=== PATIENT | female | born 1935 | race Caucasian/White ===

== ENCOUNTER 2020-06-20 17:27 | Outpatient (REF) | payer MEDICARE, SELFPAY | END 2020-06-20 17:28 | disposition home or self-care (01) | LOC: HO.LNP 17:27 | PROVIDERS: Visit Provider Nurse Practitioner Family | DX: R30.0 Dysuria (principal) | CPT/HCPCS: 87086; 87088; 87186 ==

== ENCOUNTER 2020-07-04 12:55 | Outpatient (REF) | payer MEDICARE, SELFPAY | END 2020-07-04 12:56 | disposition home or self-care (01) | LOC: HO.LNP 12:55 | PROVIDERS: Visit Provider Hospitalist | DX: N39.0 Urinary tract infection, site not specified (principal) | CPT/HCPCS: 87086 ==

== ENCOUNTER 2020-07-24 09:27 | Outpatient (REF) | payer MEDICARE, SELFPAY ==
[2020-07-24 12:34] LABS: TSH reflex Free T4 4.65 mIU/mL (0.32-4.0)
[2020-07-24 12:45] LABS: Alanine Aminotransferase 141 U/L (0-31); Albumin Level 4.3 g/dL (3.5-5.0); Alkaline Phosphatase 80 U/L (39-117); Anion Gap 17 (12-20); Aspartate Amino Transferase 126 U/L (5-31); Bilirubin Total 0.9 mg/dL (0.0-1.0); Blood Urea Nitrogen 17 mg/dL (9-16); Calcium 9.6 mg/dL (8.4-10.2); Carbon Dioxide 20 mmol/L (22-29); Chloride 108 mmol/L (96-108); Estimated Glomerular Filt Rate 46; Glucose Fasting 113 mg/dL (60-99); Potassium 3.7 mmol/l (3.3-5.1); Sodium 141 mmol/L (135-145); Total Protein 7.1 g/dL (6.5-8.0)
[2020-07-24 13:49] LABS: Free T4 (Free Thyroxine) 1.26 ng/dL (0.71-1.85)
== END 2020-07-24 09:28 | disposition home or self-care (01) ==
LOC: HO.HMGCLDS 09:27
PROVIDERS: PCP Internal Medicine; Visit Provider Nurse Practitioner Family
DX: E03.9 Hypothyroidism, unspecified (principal); R74.8 Abnormal levels of other serum enzymes
CPT/HCPCS: 80053; 84439; 84443

== ENCOUNTER → 2020-08-01 13:57 | Outpatient (BNVA) | payer MEDICARE, SELFPAY | PROVIDERS: PCP Internal Medicine; Visit Provider Urology | DX: R39.15 Urgency of urination (principal); R35.0 Frequency of micturition | CPT/HCPCS: 81002; Q3014 ==

== ENCOUNTER 2020-08-19 07:48 | Outpatient (REF) | payer MEDICARE, SELFPAY ==
--- NOTE | 2020-08-19 07:51 | US_ITS ---
EXAMINATION: US ABDOMEN COMPLETE CLINICAL INFORMATION: Abnormal levels of other serum enzymes. COMPARISON: Ultrasound abdomen 07/19/2018 TECHNIQUE: Real-time imaging of the abdominal viscera. FINDINGS: PANCREAS: Normal. ABDOMINAL AORTA: The abdominal aorta is of normal caliber. INFERIOR VENA CAVA: Visualized portions are normal. LIVER: The liver is normal in size. The liver contour is normal. The liver is diffusely increased in echogenicity. No focal hepatic lesion. There is no intrahepatic biliary duct dilatation seen. GALLBLADDER: There are multiple echogenic shadowing gallstones with gallbladder wall thickening of 0.2 cm. COMMON BILE DUCT: Normal in caliber measuring 0.3 cm in diameter. RIGHT KIDNEY: There is a complex cystic lesion in the upper pole measuring 11.0 x 10.0 x 12.3 cm. No hydronephrosis or renal calculi. The kidney measures 13.7 cm in maximum dimension. LEFT KIDNEY: There is an echogenic stone versus calcification in midpole measuring 0.4 x 0.24 x 0.35 cm. Surrounding this calcification is an anechoic cyst measuring 1.2 x 1.5 x 2.0 cm. No hydronephrosis. The kidney measures 11.6 cm in maximum dimension. SPLEEN: The spleen measures 15.4 cm in maximum dimension. FREE FLUID: None. US/US abdomen complete IMPRESSION: Complex cyst midpole left kidney with an echogenic stone or calcification adjacent to it. Large complex cyst right kidney. Cholelithiasis without wall thickening. Hepatic steatosis. No focal lesions seen.
== END 2020-08-19 07:49 | disposition home or self-care (01) ==
LOC: HO.US 07:48
PROVIDERS: Visit Provider Nurse Practitioner Family
DX: R74.8 Abnormal levels of other serum enzymes (principal)
CPT/HCPCS: 76700

== ENCOUNTER 2020-09-03 14:38 | Outpatient (REF) | payer MEDICARE, SELFPAY ==
[2020-09-04 14:23] LABS: Urine Cytology See Pathology rpt
== END 2020-09-03 14:39 | disposition home or self-care (01) ==
LOC: HO.LNP 14:38
PROVIDERS: PCP Nurse Practitioner Family; Visit Provider Urology
DX: Z13.89 Encounter for screening for other disorder (principal)

== ENCOUNTER 2020-09-04 | Outpatient (REF) | payer MEDICARE, SELFPAY | END 2020-09-04 00:01 | disposition home or self-care (01) | LOC: HO.LNP | PROVIDERS: Visit Provider Urology | DX: R39.15 Urgency of urination (principal) | CPT/HCPCS: 88112 ==

== ENCOUNTER 2020-09-23 12:14 | Outpatient (REF) | payer MEDICARE, SELFPAY ==
--- NOTE | 2020-09-23 12:19 | US_ITS ---
EXAMINATION: US PELVIS LIMITED (BLADDER) CLINICAL INFORMATION: Poor urinary stream. COMPARISON: None TECHNIQUE: Real-time imaging of the bladder. FINDINGS: BLADDER: Well distended and normal. Bilateral ureteral jets are demonstrated. Prevoid bladder volume is 150 mL. Postvoid bladder volume is 22 mL. US/US bladder IMPRESSION: Small postvoid residual bladder volume of 22 mL. Normal bilateral ureteral jets. No bladder wall thickening seen.
== END 2020-09-23 12:15 | disposition home or self-care (01) ==
LOC: HO.US 12:14
PROVIDERS: PCP Nurse Practitioner Family; Visit Provider Urology
DX: R39.12 Poor urinary stream (principal); R39.15 Urgency of urination
CPT/HCPCS: 76857

== ENCOUNTER → 2020-10-03 14:46 | Outpatient (BNVA) | payer MEDICARE, SELFPAY | PROVIDERS: PCP Nurse Practitioner Family; Visit Provider Urology | DX: N32.81 Overactive bladder (principal) | CPT/HCPCS: 99212 ==

== ENCOUNTER 2022-11-29 08:16 | Day surgery (SDC) | payer MEDICARE, SELFPAY ==
[2022-11-24 11:34] VITALS: BMI 29.3
[2022-11-24 13:31] VITALS: BMI 29.0
[2022-11-25 14:34] VITALS: BMI 27.8
--- NOTE | 2022-11-26 09:23 | MHC.SHP ---
Pre-Procedural Eval Section A Date of Service: 11/26/22 The patient is an INPATIENT: No Changes since office visit: No Cold of Flu in the past 2 weeks, No New Medical Problems, No Changes in Medication and No Patient answered all questions The History & Physical has been completed within 30 days and I have reviewed it.: Yes Section B Chief Complaint: Age-related nuclear cataract, right eye Allergies: Allergies Allergy/AdvReac Type Severity Reaction Status Date / Time No Known Allergies Allergy Verified 11/25/22 15:21 [No Known Allergies*] Plan Diagnosis/Plan: Unchanged I have reviewed the history and physical and performed a pertinent physical examination on my patient. No changes have occurred unless specified. Time Spent With Patient Time: Total time managing care of this patient today ____ minutes.
--- NOTE | 2022-11-26 10:30 | HO.ANESPROP2 ---
Documented by User: Suellen Ly NP 11/26/22 10:30 HPI - Anesthesia Eval Consult details Narrative: 87yo F for Right Cataract Extraction IOL Insertion PCP cleared No previous cataract on record [facility] Active Problems Active Problems: All Active Problems (Updated 11/25/22 @ 15:21 by FAIZA Reid) Pre-op evaluation (Acute) Dysuria (Acute) Pelvic pressure in female (Acute) Hypothyroid (Acute) Urinary urgency (Acute) Urinary frequency (Acute) Overactive bladder (Acute) HTN (hypertension) (Acute) Complex renal cyst (Acute) Elevated liver enzymes (Acute) Past Medical History Medical History Arthritis Complex renal cyst Elevated liver enzymes HTN (hypertension) Hypothyroid Overactive bladder Family History Family History Father No problems noted. Mother HTN (hypertension) Diabetes mellitus Paternal Grandfather No problems noted. Maternal Grandfather No problems noted. Maternal Grandmother No problems noted. Paternal Grandmother No problems noted. Sister No problems noted. Son No problems noted. Daughter No problems noted. Surgical History Surgical History BCC (basal cell carcinoma) History of left hip replacement History of right hip replacement Hx of tonsillectomy Social History Social History Housing: House Are you a primary care team coordinator scheduler to a significant other at home: No Do you presently have visiting nurse or other home services: No Alcohol intake: never Patient Tobacco Use Status: Former Tobacco user Quit Date: age 37 Tobacco use type: Cigarette Years Smoked: 15 e-Cigarette/Vaping Use: Never Used Second Hand Smoke Exposure: No Use of substances other than those prescribed or required for medical reasons: No Have you been hit, kicked, punched, or otherwise hurt by someone within the past year? If so, by whom?: No Are you DNR?: No Advance Directives: No Advance Directives Information Provided: Yes (brochure mailed) Advance Directives on File: No Recently lost weight without trying: No Eating poorly because of decreased appetite: No Nutrition Risks: Surgical patient >75years Poor oral hygiene: No (upper full & lower partial dentures) Current occupational status: retired Cognitive needs: No Hearing needs: No Vision needs: No Meds Allergies Allergy/AdvReac Type Severity Reaction Status Date / Time No Known Allergies Allergy Verified 11/25/22 15:21 [No Known Allergies*] Exam Exam Date and Time: November 26, 2022 1030 Height,Weight and Vital Signs: Height 5 ft 6 in Weight 78.245 kg Assessment and Plan Assessment Anesthesia Assessment: Chart Reviewed Documented by User: Guy Ashton MD 11/29/22 12:36 HPI - Anesthesia Eval Consult details Narrative: 87yo F for Right Cataract Extraction IOL Insertion optimized per PCP No previous cataract on record [facility] Past Medical History Medical History Arthritis Complex renal cyst Elevated liver enzymes HTN (hypertension) Hypothyroid Overactive bladder Family History Family History Father No problems noted. Mother HTN (hypertension) Diabetes mellitus Paternal Grandfather No problems noted. Maternal Grandfather No problems noted. Maternal Grandmother No problems noted. Paternal Grandmother No problems noted. Sister No problems noted. Son No problems noted. Daughter No problems noted. Family history of problems with anesthesia: No Surgical History Surgical History BCC (basal cell carcinoma) History of left hip replacement History of right hip replacement Hx of tonsillectomy History of Problems with Anesthesia: No Social History Social History Housing: House Are you a primary care team coordinator scheduler to a significant other at home: No Do you presently have visiting nurse or other home services: No Alcohol intake: never Patient Tobacco Use Status: Former Tobacco user Quit Date: age 37 Tobacco use type: Cigarette Years Smoked: 15 e-Cigarette/Vaping Use: Never Used Second Hand Smoke Exposure: No Use of substances other than those prescribed or required for medical reasons: No Have you been hit, kicked, punched, or otherwise hurt by someone within the past year? If so, by whom?: No Are you DNR?: No Advance Directives: No Advance Directives Information Provided: Yes (brochure mailed) Advance Directives on File: No Recently lost weight without trying: No Eating poorly because of decreased appetite: No Nutrition Risks: Surgical patient >75years Poor oral hygiene: No (upper full & lower partial dentures) Current occupational status: retired Cognitive needs: No Hearing needs: No Vision needs: No Meds Allergies Allergy/AdvReac Type Severity Reaction Status Date / Time No Known Allergies Allergy Verified 11/25/22 15:21 [No Known Allergies*] Exam Airway Mallampati Class: IV Denture: Upper Partial: Lower Loose/Missing/Broken Teeth: Yes Heart: S1,S2 Lungs: b/l breath sounds Assessment and Plan Assessment Anesthesia Assessment: Anesthesia Plan Discussed Final Anesthetic Review Family History of Problems with Anesthesia: No History of Problems with Anesthesia: No NPO: Yes ASA Class: III Final Preanesthetic Review: Meds/Allgs Chart Reviewed, Consent Obtained/Reviewed and Anes Risks/Benef Reviewed Patient Risk: Intermediate Procedure Risk: Intermediate Anesthetic Plan Anesthetic Plan: MAC: Disposition: Standard PACU
[2022-11-29 09:44] VITALS: BP 135/62; PULSE 63; RESP 16; TEMP 36.4; O2SAT 97
[2022-11-29] MEDS: Tetracaine HCl/PF 0.5% Oph Sol 4 ML DROPS 1 DROP EYE-RIGHT (09:50)
[2022-11-29] MEDS: Cyclopentolate 1 % Ophth Sol 2 ML DRPBTL 1 DROP EYE-RIGHT ×3 (09:52→10:03)
[2022-11-29] MEDS: Tropicamide 1 % Ophth Sol 3 ML BTL 1 DROP EYE-RIGHT ×3 (09:53→10:04)
[2022-11-29] MEDS: Phenylephrine HCL 2.5% Oph SoL 2 ML BOTTLE 1 DROP EYE-RIGHT ×3 (09:54→10:06)
[2022-11-29] MEDS: Ketorolac Tromethamine 0.5% Op 5 ML DROPS 1 DROP EYE-RIGHT ×3 (09:54→10:05)
[2022-11-29] MEDS: Lactated Ringers 500 ML 50 ML IV (09:57)
--- NOTE | 2022-11-29 10:58 | HO.PNOPHT ---
Ophthalmology Procedure Procedure Date of Service: 11/29/22 Ophthalmology Viscoelastic: Ileana Kimblet Dual Pack Pro Ophthalmology Lenses: TECRON [id number] (21) Procedure Notes: PREOPERATIVE DIAGNOSIS: Decreased visual acuity right eye secondary to cataract POSTOPERATIVE DIAGNOSIS: Same PROCEDURE: Right cataract extraction with intraocular lens insertion SURGEON: Malik Barros M.D. ANESTHESIA: Topical/MAC ESTIMATED BLOOD LOSS: None COMPLICATIONS: None After obtaining informed consent, the patient was brought to the operating room suite and placed in the supine position. After adequate sedation per anesthesia, topical drops of Tetracaine were given to the right eye. The eye was then prepped and draped in the usual sterile fashion. The operating room microscope was then positioned over the operative eye and a lid speculum placed. A paracentesis was created. Viscoelastic was then instilled into the anterior chamber. A three plane incision was then created temporally, utilizing a 2.85 mm keratome. Capsulotomy forceps were then utilized to create a circular tear capsulotomy. Hydrodissection and hydrodelineation were carried out until adequate mobilization of the nucleus occurred. Phacoemulsification was then utilized to remove the dense central nucleus followed by removal of the cortical material utilizing the automated aspiration irrigation unit. Viscoelastic was instilled into the posterior capsular bag followed by placement of a posterior chamber intraocular lens without difficulty. The residual Viscoelastic was then removed utilizing the automated IA machine. The wound was checked and found to be watertight. The patient tolerated the procedure well and the lid speculum was removed. Intracameral injection of Vigamox 0.1 mL followed by a subtenon injection of Kenalog-40 0.2 mL were administered. The patient will be seen in the a.m.
[2022-11-29 11:33] VITALS: BP 150/73; PULSE 62; RESP 16; TEMP 36.3; O2SAT 98
== END 2022-11-29 11:41 | disposition home or self-care (01) ==
PROVIDERS: PCP Nurse Practitioner Family; Visit Provider Ophthalmology
PROC: (CPT 66985; principal; 2022-11-29 11:00)
DX: H25.11 Age-related nuclear cataract, right eye (principal); H52.4 Presbyopia; H35.00 Unspecified background retinopathy; H35.3121 Nonexudative age-related macular degeneration, left eye, early dry stage; H18.413 Arcus senilis, bilateral; H91.90 Unspecified hearing loss, unspecified ear; I10 Essential (primary) hypertension; E03.9 Hypothyroidism, unspecified; Z79.899 Other long term (current) drug therapy; Z87.891 Personal history of nicotine dependence
CPT/HCPCS: 66984; J3010; J3301; V2632

== ENCOUNTER 2022-12-13 08:45 | Day surgery (SDC) | payer MEDICARE, SELFPAY ==
[2022-11-24 11:35] VITALS: BMI 29.3
[2022-11-24 13:34] VITALS: BMI 29.0
[2022-11-25 14:35] VITALS: BMI 27.8
--- NOTE | 2022-12-09 14:54 | MHC.SHP ---
Pre-Procedural Eval Section A Date of Service: 12/09/22 The patient is an INPATIENT: No Changes since office visit: No Cold of Flu in the past 2 weeks, No New Medical Problems, No Changes in Medication and No Patient answered all questions The History & Physical has been completed within 30 days and I have reviewed it.: Yes Section B Chief Complaint: Age-related nuclear cataract, left eye Allergies: Allergies Allergy/AdvReac Type Severity Reaction Status Date / Time No Known Allergies Allergy Verified 11/25/22 15:21 [No Known Allergies*] Plan Diagnosis/Plan: Unchanged I have reviewed the history and physical and performed a pertinent physical examination on my patient. No changes have occurred unless specified. Time Spent With Patient Time: Total time managing care of this patient today ____ minutes.
--- NOTE | 2022-12-13 09:19 | P.CONAN_ITS ---
[facility] Active Problems Active Problems: All Active Problems (Updated 11/25/22 @ 15:21 by FAIZA Reid) Pre-op evaluation (Acute) Dysuria (Acute) Pelvic pressure in female (Acute) Hypothyroid (Acute) Urinary urgency (Acute) Urinary frequency (Acute) Overactive bladder (Acute) HTN (hypertension) (Acute) Complex renal cyst (Acute) Elevated liver enzymes (Acute) Past Medical History Medical History Arthritis Complex renal cyst Elevated liver enzymes HTN (hypertension) Hypothyroid Overactive bladder Family History Family History Father No problems noted. Mother HTN (hypertension) Diabetes mellitus Paternal Grandfather No problems noted. Maternal Grandfather No problems noted. Maternal Grandmother No problems noted. Paternal Grandmother No problems noted. Sister No problems noted. Son No problems noted. Daughter No problems noted. Family history of problems with anesthesia: No Surgical History Surgical History BCC (basal cell carcinoma) History of left hip replacement History of right hip replacement Hx of tonsillectomy History of Problems with Anesthesia: No Social History Social History Housing: House Are you a primary youth care professional to a significant other at home: No Do you presently have visiting nurse or other home services: No Alcohol intake: never Patient Tobacco Use Status: Former Tobacco user Quit Date: age 37 Tobacco use type: Cigarette Years Smoked: 15 e-Cigarette/Vaping Use: Never Used Second Hand Smoke Exposure: No Use of substances other than those prescribed or required for medical reasons: No Have you been hit, kicked, punched, or otherwise hurt by someone within the past year? If so, by whom?: No Are you DNR?: No Advance Directives: No Advance Directives Information Provided: Yes (brochure mailed) Recently lost weight without trying: No Eating poorly because of decreased appetite: No Nutrition Risks: Surgical patient >75years Poor oral hygiene: No (upper full & lower partial dentures) Current occupational status: retired Cognitive needs: No Hearing needs: No Vision needs: No Meds Allergies Allergy/AdvReac Type Severity Reaction Status Date / Time No Known Allergies Allergy Verified 11/25/22 15:21 [No Known Allergies*] Exam Exam Date and Time: December 13, 2022 0919 Height,Weight and Vital Signs: Height 5 ft 6 in Weight 78.245 kg Airway Mallampati Class: II TM Dist: >3cm Neck ROM: Full Denture: Upper Partial: Lower Heart: rrr Lungs: cta Assessment and Plan Assessment Anesthesia Assessment: Anesthesia Plan Discussed and Chart Reviewed Final Anesthetic Review Family History of Problems with Anesthesia: No History of Problems with Anesthesia: No NPO: Yes ASA Class: III Final Preanesthetic Review: No Changes in Pt Med Stat, Meds/Allgs Chart Reviewed and Consent Obtained/Reviewed Patient Risk: Intermediate Procedure Risk: Intermediate Anesthetic Plan Anesthetic Plan: MAC: Disposition: Standard PACU
[2022-12-13 09:52] VITALS: BP 142/61; PULSE 63; RESP 16; TEMP 36.1; O2SAT 98
[2022-12-13] MEDS: Cyclopentolate 1 % Ophth Sol 2 ML DRPBTL 1 DROP EYE-LEFT ×3 (09:56→10:06)
[2022-12-13] MEDS: Tetracaine HCl/PF 0.5% Oph Sol 4 ML DROPS 1 DROP EYE-LEFT (09:56)
[2022-12-13] MEDS: Tropicamide 1 % Ophth Sol 3 ML BTL 1 DROP EYE-LEFT ×3 (09:57→10:07)
[2022-12-13] MEDS: Ketorolac Tromethamine 0.5% Op 5 ML DROPS 1 DROP EYE-LEFT ×3 (10:00→10:07)
[2022-12-13] MEDS: Phenylephrine HCL 2.5% Oph SoL 2 ML BOTTLE 1 DROP EYE-LEFT ×3 (10:02→10:08)
[2022-12-13] MEDS: Lactated Ringers 500 ML 50 ML IV (10:14)
--- NOTE | 2022-12-13 10:36 | HO.PNOPHT ---
Ophthalmology Procedure Procedure Date of Service: 12/13/22 Ophthalmology Viscoelastic: Healjesse Duet Dual Pack Pro Ophthalmology Lenses: TECNIS [id number] (21.5) Procedure Notes: PREOPERATIVE DIAGNOSIS: Decreased visual acuity left eye secondary to cataract POSTOPERATIVE DIAGNOSIS: Same PROCEDURE: Left cataract extraction with intraocular lens insertion SURGEON: Malik Barros M.D. ANESTHESIA: Topical/MAC ESTIMATED BLOOD LOSS: None COMPLICATIONS: None After obtaining informed consent, the patient was brought to the operation room suite and placed in the supine position. After adequate sedation per anesthesia, topical drops of Tetracaine were given to the left eye. The eye was then prepped and draped in the usual sterile fashion. The operating room microscope was then positioned over the operative eye and a lid speculum placed. A paracentesis was created. Viscoelastic was then instilled into the anterior chamber. A three plane incision was then created temporally, utilizing a 2.85 mm keratome. Capsulotomy forceps were then utilized to create a circular tear capsulotomy. Hydrodissection and hydrodelineation were carried out until adequate mobilization of the nucleus occurred. Phacoemulsification was then utilized to remove the dense central nucleus followed by removal of the cortical material utilizing the automated aspiration irrigation unit. Viscoat elastic was instilled into the posterior capsular bag followed by placement of a posterior chamber intraocular lens without difficulty. The residual Viscoat elastic was then removed utilizing the automated IA machine. The wound was check and found to be watertight. The patient tolerated the procedure well and the lid speculum was removed. Intracameral injection of Vigamox 0.1 mL followed by a subtenon injection of Kenalog-40 0.2 mL were administered. The patient will be seen in the a.m.
[2022-12-13 10:56] VITALS: BP 139/59; PULSE 61; RESP 12; TEMP 37.1; O2SAT 100
== END 2022-12-13 11:14 | disposition home or self-care (01) ==
PROVIDERS: PCP Nurse Practitioner Family; Visit Provider Ophthalmology
PROC: (CPT 66985; principal; 2022-12-13 10:50)
DX: H25.12 Age-related nuclear cataract, left eye (principal); H52.4 Presbyopia; H35.00 Unspecified background retinopathy; H35.3121 Nonexudative age-related macular degeneration, left eye, early dry stage; H18.413 Arcus senilis, bilateral; I10 Essential (primary) hypertension; E03.9 Hypothyroidism, unspecified; H91.90 Unspecified hearing loss, unspecified ear; Z79.899 Other long term (current) drug therapy
CPT/HCPCS: 66984; J2250; J3010; J3301; V2632

== ENCOUNTER 2023-07-13 07:46 | Outpatient (REF) | payer MEDICARE, SELFPAY ==
[2023-07-13 08:11] LABS: MANUAL DIFF FLAG NO
[2023-07-13 09:32] LABS: Basophils Percent Auto 0.7 % (0-2); Eosinophils Absolute Auto 0.1 X10*3/uL (0.0-0.4); Eosinophils Percent Auto 1.5 % (0-4); Hematocrit 36.3 % (37.0-47.0); Hemoglobin 11.1 g/dl (12.0-16.0); Imm Gran Abs Auto 0.03 X10*3/uL (0.00-0.03); Imm Gran Pct Auto 0.5 % (0.0-0.4); Lymphocytes Absolute Auto 1.4 X10*3/uL (1.2-4.9); Lymphocytes Percent Auto 26.2 % (20-40); Mean Corpuscular HGB Conc 30.6 g/dl (31.0-35.0); Mean Corpuscular Hemoglobin 24.9 pg (27.0-33.0); Mean Corpuscular Volume 81.4 fL (80.0-98.0); Mean Platelet Volume 10.2 fL (9.4-12.3); Monocytes Absolute Auto 0.5 X10*3/uL (0.1-1.2); Monocytes Percent Auto 8.6 % (2-11); Neutrophils Absolute Auto 3.4 x10*3/uL (2.0-8.3); Neutrophils Percent Auto 62.5 % (45-73); Platelet Count 176 X10*3/uL (160-400); Red Blood Count 4.46 X10*6/uL (4.20-5.50); Red Cell Distribution Width 15.6 % (11.0-16.0); White Blood Count 5.5 X10*3/uL (4.8-10.8)
[2023-07-13 10:25] LABS: Alanine Aminotransferase 20 U/L (0-31); Albumin Level 4.2 g/dL (3.5-5.0); Alkaline Phosphatase 67 U/L (39-117); Anion Gap 15 (12-20); Aspartate Amino Transferase 23 U/L (5-31); Bilirubin Total 0.8 mg/dL (0.0-1.0); Blood Urea Nitrogen 29 mg/dL (9-16); Calcium 10.3 mg/dL (8.4-10.2); Carbon Dioxide 22 mmol/L (22-29); Chloride 109 mmol/L (96-108); Cholesterol 139 mg/dL (<200); Estimated Glomerular Filt Rate 40; Glucose Fasting 116 mg/dL (60-99); HDL Cholesterol 32 mg/dL (>40); LDL Cholesterol Calculated 76 mg/dL (<100); Potassium 3.7 mmol/L (3.3-5.1); Sodium 142 mmol/L (135-145); Total Protein 7.5 g/dL (6.5-8.0); Triglycerides 159 mg/dL (<150)
== END 2023-07-13 07:47 | disposition home or self-care (01) ==
LOC: HO.LAB 07:46
PROVIDERS: PCP Nurse Practitioner Family; Visit Provider Nurse Practitioner Family
DX: I10 Essential (primary) hypertension (principal)
CPT/HCPCS: 36415; 80053; 80061; 84443; 85025

== ENCOUNTER 2023-12-19 14:56 | Outpatient (AMB) | payer MEDICARE, SELFPAY ==
--- NOTE | 2023-12-19 14:58 | MHC.PC.OV ---
Vital Signs 12/19/23 15:00 Height 5 ft 6 in Weight 169 lb BMI 27.3 BP 116/60 Blood Pressure Location Rt brachial Position Sitting Pulse 68 Pulse Source Pulse Oximeter Pulse Oximetry (%) 97 Oxygen Delivery Method Room Air Intake Visit Reasons: PE HTN Intake Note: Patient here for physical exam, no new issues or concerns. Allergies No Known Allergies [No Known Allergies*] Allergy (Verified 12/19/23 17:37) Medication List - Last Reconciled 12/19/23 by FAIZA Reid amlodipine 10 mg PO DAILY levothyroxine 88 mcg PO DAILY lisinopril-hydrochlorothiazide 20-12.5 mg 1 tab PO DAILY 90 days metoprolol tartrate 50 mg PO BID Tobacco use date assessed: 12/19/23 Fall risk assessment: No Falls in past year Last assessed Fall Risk: 12/19/23 Dental Screening Dental Screen Date: 12/19/23 Did you have a dental visit in the last 12 months?: No Did you have a dental problem in the last 6 months where you did not have access to dental care?: No Was dental information given to patient?: No HPI PE HTN HPI Details Pt is here for a PE. Will order labs. Refuses mammo and other screenings. HTN: Blood pressure is stable, managed with amlodipine 10mg, lisinopril-hydrochlorothiazide 20-12.5mg, and metoprolol 50mg bid. Denies chest pain, shortness of breath, headache, dizziness, and blurred vision. [facility] Medical History Overactive bladder Arthritis Hypothyroid HTN (hypertension) Complex renal cyst Elevated liver enzymes Surgical History (Updated 04/21/23 @ 18:00 by FAIZA Reid) Hx of tonsillectomy BCC (basal cell carcinoma) History of right hip replacement History of left hip replacement Family History Father No problems noted. Mother HTN (hypertension) Diabetes mellitus Paternal Grandfather No problems noted. Maternal Grandfather No problems noted. Maternal Grandmother No problems noted. Paternal Grandmother No problems noted. Sister No problems noted. Son No problems noted. Daughter No problems noted. Social History Housing: House Are you a primary personal care service provider to a significant other at home: No Do you presently have visiting nurse or other home services: No Alcohol intake: never Patient Tobacco Use Status: Former Tobacco user Quit Date: age 37 Tobacco use type: Cigarette Years Smoked: 15 e-Cigarette/Vaping Use: Never Used Second Hand Smoke Exposure: No Current occupational status: retired Cognitive needs: No Hearing needs: No Vision needs: No Questionnaire Thrive Questionnaire Date Thrive assessed: 11/25/22 AUDIT C Alcohol Use Questionnaire (AUDIT-C) 1. How often do you have a drink containing alcohol?: Never 3. How often do you have six or more drinks on one occasion?: Never Total Score: 0 Score Reviewed/Action Taken: No JOHN-7 AMB Questionnaire JOHN-7 Date JOHN - 7 assessed: 11/25/22 Source: Developed by Drs. Sylvain Rowe, Sonia Strodu, Luther Reyes and colleagues, with an educational crissy from [employer]. Review of Systems Const Denies chills and Denies fever(s) Eyes Denies blurry vision ENT Denies vertigo, Denies dizziness and Denies sore throat Card Denies chest pain at rest, Denies chest pain with activity, Denies diaphoresis, Denies dyspnea and Denies dyspnea on exertion Resp Denies cough, Denies dyspnea, Denies dyspnea on exertion and Denies wheezing GI Denies abdominal pain, Denies melena, Denies hematochezia, Denies constipation, Denies diarrhea and Denies loose stools Denies hematuria Musc Denies numbness and Denies tingling Skin/Breast Denies lesions Neuro Denies vertigo, Denies dizziness, Denies numbness and Denies tingling Psych Denies anxiety, Denies depression, Denies homicidal ideation, Denies suicidal ideation and Denies other (substance abuse) Aller/Immun Denies wheezing Physical exam (Primary Care) Vital Signs: Last Vital Signs Pulse 68 12/19/23 15:00 BP 116/60 12/19/23 15:00 Pulse Ox 97 12/19/23 15:00 Oxygen Delivery Method Room Air 12/19/23 15:00 BMI result Body Mass Index 27.3 Tobacco/Smoking Status: Tobacco use Status Tobacco use date assessed 12/19/23 12/19/23 15:03 Patient Tobacco Use Status Former Tobacco user 12/19/23 15:00 Tobacco use type Cigarette 12/19/23 15:00 e-Cigarette/Vaping Use Never Used 12/19/23 15:00 Thrive Assessment: Date of Thrive Assessment Date Thrive assessed 11/25/22 12/19/23 15:00 Const General: cooperative Nutritional Appearance: well nourished Orientation/consciousness: patient oriented x3 HENMT Head: Yes normal to inspection, Yes normocephalic and Yes atraumatic Ears: TM's normal bilaterally Eyes General: appearance normal, both eyes and all related structures Alignment and Position: alignment normal and position normal Neck Neck: Yes normal visual inspection and Yes no lymphadenopathy Thyroid: Thyroid normal Resp Effort & Inspection: normal respiratory effort Auscultation: clear to auscultation bilaterally Cardio Rate: regular rate Rhythm: regular rhythm Heart sounds: S1 normal heart sound present, S2 normal heart sound present and no murmurs GI Palpation (GI): Soft to palpation and nontender Auscultation: normal bowel sounds Skin Rashes: no rashes Neuro General: patient oriented x3, moves all extremities, no focal motor deficits and deep tendon reflexes 2+ bilaterally Romberg Test: Negative Extrem Right lower extremity: edema (trace) Left lower extremity: edema (trace) Psych Appearance: grossly normal Mental Status: mental status grossly normal Speech and movement: Normal speech and movement present Affect: normal affect Attitude: cooperative Thought process: Normal thought process present Thought content: Normal thought content present Insight: Good insight present (Psych) Judgement: Good judgement present (Psych) Assessment and Plan Assessment & Plan (1) HTN (hypertension): Code(s): I10 - Essential (primary) hypertension Plan: Stable, labs ordered (2) Vitamin D deficiency: Code(s): E55.9 - Vitamin D deficiency, unspecified Plan: Labs ordered Plan The patient agreed to the use of a medical records clerk for this encounter. Scribed for FAIZA Dickinson by Mira Byers medical records clerk, on 12/19/2023 at 15:15 EST. Orders: Orders Complete Blood Count Auto Diff Today I10 - Essential (primary) hypertension Comprehensive [place]. Panel Fast Today I10 - Essential (primary) hypertension TSH reflex Free T4 Today I10 - Essential (primary) hypertension UA CC w/rflx Micro + Cult Today I10 - Essential (primary) hypertension Lipid Panel Today I10 - Essential (primary) hypertension Vitamin D 25-OH Total Today E55.9 - Vitamin D deficiency, unspecified Coding Level of Care Code Est Pt Prev Care >65y(53761) Diagnoses HTN (hypertension) I10 Vitamin D deficiency E55.9
[2023-12-19 15:00] VITALS: BP 116/60; PULSE 68; O2SAT 97; BMI 27.3
== END 2023-12-19 16:11 | disposition home or self-care (01) ==
PROVIDERS: PCP Nurse Practitioner Family; Visit Provider Nurse Practitioner Family
DX: Z00.00 Encounter for general adult medical examination without abnormal findings (principal); I10 Essential (primary) hypertension; E55.9 Vitamin D deficiency, unspecified
CPT/HCPCS: 99397

== ENCOUNTER 2024-09-20 13:12 | Outpatient (AMB) | payer MEDICARE, SELFPAY ==
--- NOTE | 2024-09-20 14:14 | MHC.OFFWIV ---
Intake Vital Signs 09/20/24 14:25 Weight 172 lb BP 98/58 L Blood Pressure Location Rt brachial Position Sitting Pulse 80 Pulse Source Pulse Oximeter Temp 97.8 F Temp Source Oral Pulse Oximetry (%) 98 Oxygen Delivery Method Room Air Intake Visit Reasons: EP cough, congestion, no voice Intake Note: Patient here for eye discharge, cough and chest congestion. Patient Tobacco Use Status: Former Tobacco user Allergies No Known Allergies [No Known Allergies*] Allergy (Verified 09/20/24 14:25) Do you need a note to return to daycare/school/sports/work: No HPI HPI Comments History of Present Illness Details History - The patient is an 89-year-old female presenting with cough. - Symptoms initiated five days ago, associated with occasional nighttime hot sweats but no fever. - Reports of eye discharge described as yellowish, adhering eyelids in the morning, none previously experienced. - Denies respiratory difficulties; patient has no chronic respiratory conditions. - Fatigue noted, non-deviating from patient?s age-related experiences, with normal vision/hearing.. - Patient suspects influenza due to prior illness. Physical Exam General: Cooperative, healthy appearing, comfortable and no acute distress Orientation/consciousness: Patient oriented x3 Limitations: No limitations Head: Normal to inspection Ears: Hearing grossly normal bilaterally, external ears normal and TM's show bilateral purulent effusion R>L Nose: Normal external nose present, Normal nares present and No nasal discharge present Face and sinus: Normal facial exam and Yes sinuses nontender Mouth: Normal oral and palatal mucosa present and moist mucous membranes Throat: Yes tonsils normal, Yes uvula midline. Posterior oropharynx erythema Eyes: Appearance normal, both eyes and all related structures, noted yellow discharge in the morning Neck: Normal visual inspection Respiratory: Clear but dim slightly vesicular to auscultation bilaterally. Normal respiratory effort, able to speak in complete sentences, Actively coughing, no respiratory distress, not tachypneic, no tripod positioning and no use of accessory muscles Cardiovascular: Regular rate and rhythm. Normal S1 and S2 Skin: No rashes or lesions noted Neuro: Patient oriented x3 Extremities: Normal to inspection and Yes no clubbing, cyanosis or edema [facility] Medical History Overactive bladder Arthritis Hypothyroid HTN (hypertension) Complex renal cyst Elevated liver enzymes Surgical History (Updated 04/21/23 @ 18:00 [facility] Hx of tonsillectomy BCC (basal cell carcinoma) History of right hip replacement History of left hip replacement Family History Father No problems noted. Mother HTN (hypertension) Diabetes mellitus Paternal Grandfather No problems noted. Maternal Grandfather No problems noted. Maternal Grandmother No problems noted. Paternal Grandmother No problems noted. Sister No problems noted. Son No problems noted. Daughter No problems noted. Social History Housing: House Are you a primary lawn caretaker to a significant other at home: No Do you presently have visiting nurse or other home services: No Alcohol intake: never Patient Tobacco Use Status: Former Tobacco user Tobacco use type: Cigarette Years Smoked: 15 e-Cigarette/Vaping Use: Never Used Second Hand Smoke Exposure: No Current occupational status: retired Cognitive needs: No Hearing needs: No Vision needs: No Review of Systems Const All systems reviewed & are unremarkable except as noted in HPI and below Physical Exam Vital Signs: Last Vital Signs Temp 97.8 F 09/20/24 14:25 Pulse 80 09/20/24 14:25 BP 98/58 L 09/20/24 14:25 Pulse Ox 98 09/20/24 14:25 Oxygen Delivery Method Room Air 09/20/24 14:25 Assessment & Plan Assessment & Plan (1) Lower respiratory infection (e.g., bronchitis, pneumonia, pneumonitis, pulmonitis): Code(s): J22 - Unspecified acute lower respiratory infection Plan: Plan Sent diagnostic testing for influenza, COVID-19, and RSV. With bilateral acute otitis media, Augmentin and zpak is prescribed for suspected CAP. Nighttime cough medication is provided for sleep aid and respiratory symptom management. Blood pressure levels of 98/58 warrant cautious monitoring, especially considering the patient?s apprehension about medication. Supportive care instructions emphasize rest and adequate hydration, with follow-up contingent on symptom evolution. Patient education regarding symptom management highlights the focus on conservative treatment, aligning with patient's preferences and skepticism about medication dependency. Patient was informed and verbally consented to the use of an ambient scribe for clinic note documentation during this visit (2) Otitis media: Code(s): H66.90 - Otitis media, unspecified, unspecified ear Qualifiers: Otitis media type: suppurative Chronicity: acute Laterality: right Recurrence: non-recurrent Spontaneous tympanic membrane rupture: without spontaneous rupture Qualified Code(s): H66.001 - Acute suppurative otitis media without spontaneous rupture of ear drum, right ear Plan: as above Orders: Orders SARS-CoV2/FLU/RSV Today J22 - Unspecified acute lower respiratory infection Medications: New amoxicillin-pot clavulanate 875-125 mg 1 tab PO Q12H 14 tabs 0RF benzonatate 200 mg PO TID PRN 14 caps 0RF cough azithromycin For 250 mg dose pack: take 500 mg today (day 1), then 250 mg for 4 days (days 2-5) PO 6 tabs 0RF Coding Level of Care Code Est Pt Level 4 (96097) Diagnoses Lower respiratory infection (e.g., bronchitis, pneumonia, pneumonitis, pulmonitis) J22 Non-recurrent acute suppurative otitis media of right ear without spontaneous rupture of tympanic membrane H66.001 Otitis media type: suppurative Chronicity: acute Laterality: right Recurrence: non-recurrent Spontaneous tympanic membrane rupture: without spontaneous rupture
[2024-09-20 14:25] VITALS: BP 98/58; PULSE 80; TEMP 36.6; O2SAT 98
== END 2024-09-20 14:59 | disposition home or self-care (01) ==
PROVIDERS: PCP Nurse Practitioner Family; Visit Provider Physician Assistant
DX: J22 Unspecified acute lower respiratory infection (principal); H66.001 Acute suppurative otitis media without spontaneous rupture of ear drum, right ear

== ENCOUNTER 2024-09-20 13:12 | Outpatient (REF) | payer MEDICARE, SELFPAY ==
[2024-09-20 18:16] LABS: Influenza A PCR NEGATIVE (Negative); Influenza B PCR NEGATIVE (Negative); Resp Syncy Virus RNA Qual PCR NEGATIVE (Negative); SARS COV2 PCR INHOUSE NEGATIVE (Negative)
== END 2024-09-20 13:13 | disposition home or self-care (01) ==
LOC: HO.LAB 13:12
PROVIDERS: PCP Nurse Practitioner Family; Visit Provider Physician Assistant
DX: J22 Unspecified acute lower respiratory infection (principal); H66.001 Acute suppurative otitis media without spontaneous rupture of ear drum, right ear
CPT/HCPCS: 0241U; 99212

== ENCOUNTER 2024-12-04 09:45 | Outpatient (REF) | payer MEDICARE, SELFPAY ==
[2024-12-04 13:02] LABS: MANUAL DIFF FLAG NO
[2024-12-04 13:20] LABS: Basophils Absolute Auto 0.1 X10*3/uL (0.0-0.2); Basophils Percent Auto 0.9 % (0-2); Eosinophils Absolute Auto 0.1 X10*3/uL (0.0-0.4); Eosinophils Percent Auto 1.1 % (0-4); Hematocrit 38.5 % (37.0-47.0); Hemoglobin 11.6 g/dl (12.0-16.0); Imm Gran Abs Auto 0.03 X10*3/uL (0.00-0.03); Imm Gran Pct Auto 0.6 % (0.0-0.4); Lymphocytes Absolute Auto 1.2 X10*3/uL (1.2-4.9); Lymphocytes Percent Auto 21.8 % (20-40); Mean Corpuscular HGB Conc 30.1 g/dl (31.0-35.0); Mean Corpuscular Hemoglobin 23.7 pg (27.0-33.0); Mean Corpuscular Volume 78.7 fL (80.0-98.0); Mean Platelet Volume 10.3 fL (9.4-12.3); Monocytes Absolute Auto 0.4 X10*3/uL (0.1-1.2); Monocytes Percent Auto 7.6 % (2-11); Neutrophils Absolute Auto 3.7 x10*3/uL (2.0-8.3); Platelet Count 213 X10*3/uL (160-400); Red Blood Count 4.89 X10*6/uL (4.20-5.50); Red Cell Distribution Width 16.1 % (11.0-16.0); White Blood Count 5.4 X10*3/uL (4.8-10.8)
[2024-12-04 14:01] LABS: Alanine Aminotransferase 14 U/L (0-31); Albumin Level 4.2 g/dL (3.5-5.0); Alkaline Phosphatase 65 U/L (39-117); Anion Gap 14 (12-20); Aspartate Amino Transferase 22 U/L (5-31); Bilirubin Total 0.9 mg/dL (0.0-1.0); Blood Urea Nitrogen 25 mg/dL (9-16); Calcium 10.2 mg/dL (8.4-10.2); Carbon Dioxide 20 mmol/L (22-29); Chloride 112 mmol/L (96-108); Cholesterol 142 mg/dL (<200); Estimated Glomerular Filt Rate 41; Glucose Fasting 110 mg/dL (60-99); HDL Cholesterol 36 mg/dL (>40); LDL Cholesterol Calculated 77 mg/dL (<100); Potassium 4.2 mmol/L (3.3-5.1); Sodium 142 mmol/L (135-145); TSH reflex Free T4 2.71 uIU/mL (0.32-4.0); Total Protein 7.7 g/dL (6.5-8.0); Triglycerides 148 mg/dL (<150); Vitamin D 25-OH Total 7.7 ng/mL (>30)
== END 2024-12-04 09:46 | disposition home or self-care (01) ==
LOC: HO.HMGCLDS 09:45
PROVIDERS: Visit Provider Nurse Practitioner Family
DX: I10 Essential (primary) hypertension (principal); E55.9 Vitamin D deficiency, unspecified
CPT/HCPCS: 36415; 80053; 80061; 82306; 84443; 85025

== ENCOUNTER 2024-12-29 13:27 | Outpatient (REF) | payer MEDICARE, SELFPAY ==
[2024-12-29 15:14] LABS: MANUAL DIFF FLAG NO
[2024-12-29 15:16] LABS: Appearance Urine Cloudy; Basophils Absolute Auto 0.1 X10*3/uL (0.0-0.2); Color Urine Dark Yellow; Eosinophils Absolute Auto 0.1 X10*3/uL (0.0-0.4); Eosinophils Percent Auto 1.5 % (0-4); Glucose Urine UA Negative (Negative); Hematocrit 35.8 % (37.0-47.0); Hemoglobin 11.3 g/dl (12.0-16.0); Imm Gran Abs Auto 0.04 X10*3/uL (0.00-0.03); Imm Gran Pct Auto 0.7 % (0.0-0.4); Immature Retic Fraction 15.8 % (3.0-15.9); Leukocyte Esterase Urine Small (1+) (Negative); Lymphocytes Absolute Auto 1.3 X10*3/uL (1.2-4.9); Lymphocytes Percent Auto 21.7 % (20-40); Mean Corpuscular HGB Conc 31.6 g/dl (31.0-35.0); Mean Corpuscular Hemoglobin 24.2 pg (27.0-33.0); Mean Corpuscular Volume 76.7 fL (80.0-98.0); Mean Platelet Volume 10.7 fL (9.4-12.3); Monocytes Absolute Auto 0.6 X10*3/uL (0.1-1.2); Monocytes Percent Auto 9.4 % (2-11); Neutrophils Percent Auto 65.7 % (45-73); Nitrite Urine Negative (Negative); PH 5.5 (5.0-9.0); Platelet Count 194 X10*3/uL (160-400); Red Blood Count 4.67 X10*6/uL (4.20-5.50); Red Cell Distribution Width 16.9 % (11.0-16.0); Retic HGB Equivalent 25.3 pg (30.0-35.0); Reticulocyte Percent 1.5 % (0.5-1.8); Reticulocytes Absolute 0.072 X10*6/uL (0.026-0.095); Specific Gravity - Urine 1.025 (1.005-1.025); UMIC TRIGGER UACC YES; Urine Blood Negative (Negative); Urine Ketones 15 mg/dL (Negative); Urine Protein 30 (1+) mg/dL (Neg-Trace); White Blood Count 6.1 X10*3/uL (4.8-10.8)
[2024-12-29 15:28] LABS: Bacteria Urine Trace (None Seen); RBC Urine 0-2 /HPF (0-2); Transitional Epi Cells Urine Present; UACC Culture Trigger YES
[2024-12-29 15:31] LABS: Iron 43 mcg/dL (30-160); Lactate Dehydrogenase 157 U/L (122-220); Percent Iron Saturation 13 % (15-50); Total Iron Binding Capacity 324 mcg/dL (228-428); Unsaturated Iron Binding 281 ug/dL
[2024-12-29 15:45] LABS: Ferritin 14 ng/mL (10-250)
[2024-12-29 15:58] LABS: Folate 10.8 ng/mL (> or = 4.0); Vitamin B12 352 pg/mL (200-900)
== END 2024-12-29 13:28 | disposition home or self-care (01) ==
LOC: HO.HMGCLDS 13:27
PROVIDERS: PCP Nurse Practitioner Family; Visit Provider Nurse Practitioner Family
DX: D64.9 Anemia, unspecified (principal); I10 Essential (primary) hypertension; R82.90 Unspecified abnormal findings in urine
CPT/HCPCS: 36415; 81001; 82607; 82728; 82746; 83540; 83615; 85025; 85045; 87086

== ENCOUNTER 2025-01-02 14:57 | Outpatient (AMB) | payer MEDICARE, SELFPAY ==
[2025-01-02 15:03] VITALS: BP 136/80; PULSE 84; RESP 20; TEMP 36.5; O2SAT 97; BMI 25.8
--- NOTE | 2025-01-02 15:03 | A.OFFPC_ITS ---
Vital Signs 01/02/25 15:03 Height 5 ft 6 in Weight 160 lb BMI 25.8 BP 136/80 Blood Pressure Location Lt brachial Position Sitting Respiration 20 Pulse 84 Pulse Source Pulse Oximeter Temp 97.7 F Temp Source Oral Pulse Oximetry (%) 97 Oxygen Delivery Method Room Air Intake Visit Reasons: Annual PE Intake Note: Pt is here today for PE. Allergies No Known Allergies [No Known Allergies*] Allergy (Verified 01/02/25 15:36) Medication List - Last Reconciled 01/02/25 by ELY Reid- amlodipine 10 mg PO DAILY cholecalciferol (vitamin D3) 50 mcg PO DAILY cholecalciferol (vitamin D3) 50 mcg PO DAILY 90 days ferrous sulfate 325 mg PO DAILY levothyroxine 88 mcg PO DAILY lisinopril-hydrochlorothiazide 20-12.5 mg 1 tab PO DAILY 90 days metoprolol tartrate 50 mg PO BID Tobacco use date assessed: 01/02/25 Fall risk assessment: No Falls in past year Last assessed Fall Risk: 01/02/25 Dental Screening Dental Screen Date: 01/02/25 Did you have a dental visit in the last 12 months?: No Did you have a dental problem in the last 6 months where you did not have access to dental care?: No Was dental information given to patient?: Patient declined HPI Annual PE HPI Details History of Present Illness The patient is an 89-year-old female presenting with fatigue and recent lab findings. She reports slight fatigue and recent lab tests confirmed a marked vitamin D deficiency. She has started on vitamin D 2000 IU daily, with plans to reassess in two months. Additionally, mild anemia suggestive of iron deficiency was noted. The patient denies any symptoms such as blood in stool, constipation, fever, chills, chest pain, shortness of breath, dizziness, and any form of bleeding, including vaginal bleeding. Iron supplement of 325 mg daily has been initiated. Health Maintenance - Initiated Vitamin D supplementation at 2000 IU daily - Iron supplementation at 325 mg daily f or iron deficiency anemia - Refusal of mammograms and bone density screenings Social History Review of Systems - General: Reports fatigue - Gastrointestinal: Denies blood in stoo l, constipation - Constitutional: Denies fever, chills, dizziness - Cardiovascular: Denies chest pain, susana rtness of breath - Hematologic: Denies vaginal bleeding Physical Exam General: Cooperative, healthy appearing, comfortable, no acute distress and well developed Orientation: Patient oriented x3 Limitations: No limitations Head: Normal to inspection Ears: Hearing grossly normal bilaterally Nose: Normal external nose present Face and sinus: Normal facial exam Eyes: Appearance normal, both eyes and all related structures Neck: Normal visual inspection and Yes full ROM Respiratory: Normal respiratory effort and able to speak in complete sentences. Clear to auscultation bilaterally Cardiovascular: Regular rate and rhythm. Normal S1 and S2 GI: Normal to inspection. Soft to palpation and nontender Neuro: Patient oriented x3 Extremities: Normal to inspection Results - Labs: Vitamin D deficiency; mild anemi a suggestive of iron deficiency Plan I have initiated vitamin D 2000 IU daily following the deficiency noted in re cent labs and plan to recheck levels in two months. For the suspected iron deficiency anemia, I have prescribed iron supplements at 325 mg daily, given the mild nature of the anemia and lack of concerning symptoms such as bleeding. Follow-up on both vitamin D and iron levels will guide future management, with the patient aware of possible side effects from the iron therapy. Discussion Notes I explained the findings of vitamin D deficiency and the importance of supplementation at a dose of 2000 IU daily, with plans to recheck levels in two months. Regarding anemia, likely due to iron deficiency, I discussed the initiation of iron therapy at 325 mg daily. I informed her of the possible side effects, such as dark stools and constipation, and provided financial services counselor on their management. The patient was advised about the follow-up strategy for both conditions. Despite recommendations, the patient refused mammograms and bone density screenings. Patient Instructions - Take 2000 IU of Vitamin D daily as pre scribed. - Start taking one tablet of iron 325 mg daily, and monitor for any side effects such as dark stools or constipation. - Re-evaluate Vitamin D and iron levels in follow-up appointments. - Report any unusual symptoms such as bl eeding, severe constipation, or significant changes in energy levels. [facility] Medical History Overactive bladder Arthritis Hypothyroid HTN (hypertension) Complex renal cyst Elevated liver enzymes Surgical History Hx of tonsillectomy BCC (basal cell carcinoma) History of right hip replacement History of left hip replacement Family History Father No problems noted. Mother HTN (hypertension) Diabetes mellitus Paternal Grandfather No problems noted. Maternal Grandfather No problems noted. Maternal Grandmother No problems noted. Paternal Grandmother No problems noted. Sister No problems noted. Son No problems noted. Daughter No problems noted. Social History Housing: House Are you a primary home health care provider to a significant other at home: No Do you presently have visiting nurse or other home services: No Alcohol intake: never Patient Tobacco Use Status: Former Tobacco user Tobacco use type: Cigarette Years Smoked: 15 e-Cigarette/Vaping Use: Never Used Second Hand Smoke Exposure: No service: No Current occupational status: retired Cognitive needs: No Hearing needs: No Vision needs: No Questionnaire PHQ-9 Over the last 2 weeks, how often have you been bothered by any of the following problems? 1. Little interest or pleasure in doing things: not at all 2. Feeling down, depressed, or hopeless: not at all 3. Trouble falling or staying asleep, or sleeping too much: not at all 4. Feeling tired or having little energy: not at all 5. Poor appetite or overeating: not at all 6. Feeling bad about yourself - or that you are a failure or have let yourself or your family down: not at all 7. Trouble concentrating on things, such as reading the newspaper or watching television: not at all 8. Moving or speaking so slowly that other people could have noticed. Or the opposite - being so fidgety or restless that you have been moving around a lot more than usual: not at all 9. Thoughts that you would be better off or of hurting yourself in some way: not at all Total score: 0 Depression Screening Interpretation: Negative Depression Screening Done: Yes 41326 - PHQ-9 Billing: Yes Source: Developed by Drs. Sylvain Rowe, Sonia Stroud, Luther Reyes and colleagues, with an educational crissy from [employer]. Thrive Questionnaire Date Thrive assessed: 01/02/25 I am a: Patient What is your living situation today?: I have a steady place to live Within the past 12 months, did the food you bought not last and you didn't have the money to get more?: Never true Within the past 12 months, did you worry whether your food would run out before you got money to buy more?: Never true Do you have trouble paying for medicines?: No Do you have trouble getting transportation to medical appointments?: No Do you have trouble paying your heating and electricity bill?: No Do you have trouble taking care of your child, family member or friend?: No Do you have trouble with day-to-day activities such as bathing, preparing meals, shopping, managing finances, etc.?: No Are you currently unemployed and looking for a job?: No Are you interested in more education?: No Please select the resources that you would like help with: None THRIVE Score: 0 AUDIT C Alcohol Use Questionnaire (AUDIT-C) 1. How often do you have a drink containing alcohol?: Never 3. How often do you have six or more drinks on one occasion?: Never Total Score: 0 OJHN-7 AMB Questionnaire JOHN-7 Date JOHN - 7 assessed: 01/02/25 Feeling nervous, anxious, or on edge: 0 = Not at all Not being able to stop or control worryin = Not at all Worrying too much about different things: 0 = Not at all Trouble relaxin = Not at all Being so restless that it is hard to sit still: 0 = Not at all Becoming easily annoyed or irritable: 0 = Not at all Feeling afraid as if something awful might happen: 0 = Not at all Total JOHN-7 score (0-4 normal; 5-9 mild; 10-14 moderate; 15-21 severe): 0 Source: Developed by Drs. Sylvain Rowe, Sonia Stroud, Luther Reyes and colleagues, with an educational crissy from [employer]. JOHN-7 Assessment Billing JOHN-7 Assessment Tool: JOHN-7 Assessment 17836 Physical exam (Primary Care) Vital Signs: Last Vital Signs Temp 97.7 F 01/02/25 15:03 Pulse 84 01/02/25 15:03 Resp 20 01/02/25 15:03 BP 136/80 01/02/25 15:03 Pulse Ox 97 01/02/25 15:03 Oxygen Delivery Method Room Air 01/02/25 15:03 BMI result Body Mass Index 25.8 Tobacco/Smoking Status: Tobacco use Status Tobacco use date assessed 01/02/25 01/02/25 15:13 Patient Tobacco Use Status Former Tobacco user 01/02/25 15:13 Tobacco use type Cigarette 01/02/25 15:13 e-Cigarette/Vaping Use Never Used 01/02/25 15:13 PHQ-9: PHQ-9 Score PHQ-9: Total score 0 01/02/25 15:31 Depression Screening Interpretation: Negative Thrive Assessment: Date of Thrive Assessment Date Thrive assessed 01/02/25 01/02/25 15:13 Coding Level of Care Code Est Pt Prev Care >65y(59215) Diagnoses Anemia D64.9 Vitamin D deficiency E55.9 Encounter for routine adult physical exam with abnormal findings Z00.01 Additional Codes JOHN-7 Assessment Billing - JOHN-7 Assessment Tool: JOHN-7 Assessment 63317 ([id number]) PHQ-9 - 50086 - PHQ-9 Billing: Yes ([id number]) Assessment & Plan Assessment & Plan (1) Anemia: Code(s): D64.9 - Anemia, unspecified Category: Medical (2) Vitamin D deficiency: Code(s): E55.9 - Vitamin D deficiency, unspecified Category: Medical (3) Encounter for routine adult physical exam with abnormal findings: Code(s): Z00.01 - Encounter for general adult medical examination with abnormal findings Category: Medical Plan . Orders: Orders Comprehensive Met. Panel Today D64.9 - Anemia, unspecified, E55.9 - Vitamin D deficiency, unspecified IRON PROFILE Today D64.9 - Anemia, unspecified, E55.9 - Vitamin D deficiency, unspecified Reticulocyte Count Today D64.9 - Anemia, unspecified Complete Blood Count Auto Diff Today D64.9 - Anemia, unspecified, E55.9 - Vitamin D deficiency, unspecified Ferritin Today D64.9 - Anemia, unspecified, E55.9 - Vitamin D deficiency, unspecified Vitamin D 25-OH Total Today E55.9 - Vitamin D deficiency, unspecified Medications: New ferrous sulfate 325 mg PO DAILY 30 tabs 2RF
== END 2025-01-02 16:36 | disposition home or self-care (01) ==
LOC: HO.HMCC 14:57
PROVIDERS: PCP Nurse Practitioner Family; Visit Provider Nurse Practitioner Family
DX: D64.9 Anemia, unspecified (principal); E55.9 Vitamin D deficiency, unspecified; Z00.01 Encounter for general adult medical examination with abnormal findings

== ENCOUNTER → 2025-01-02 14:57 | Outpatient (BNVA) | payer MEDICARE, SELFPAY | PROVIDERS: PCP Nurse Practitioner Family; Visit Provider Nurse Practitioner Family | DX: Z00.01 Encounter for general adult medical examination with abnormal findings (principal); D64.9 Anemia, unspecified; E55.9 Vitamin D deficiency, unspecified | CPT/HCPCS: 96127; 99397 ==

== ENCOUNTER 2025-04-16 07:50 | Outpatient (REF) | payer MEDICARE, SELFPAY ==
[2025-04-16 10:14] LABS: MANUAL DIFF FLAG NO
[2025-04-16 10:19] LABS: Hematocrit 41.4 % (37.0-47.0); Hemoglobin 13.5 g/dl (12.0-16.0); Imm Gran Abs Auto 0.02 X10*3/uL (0.00-0.03); Imm Gran Pct Auto 0.5 % (0.0-0.4); Lymphocytes Absolute Auto 1.2 X10*3/uL (1.2-4.9); Mean Corpuscular HGB Conc 32.6 g/dl (31.0-35.0); Mean Corpuscular Hemoglobin 27.9 pg (27.0-33.0); Mean Corpuscular Volume 85.5 fL (80.0-98.0); NRBC Abs Auto 0.000 X10*3/uL (0.0-0.012); NRBC Pct Auto 0.0 /100WBC (0.0-0.2); Platelet Count 143 X10*3/uL (160-400); Red Blood Count 4.84 X10*6/uL (4.20-5.50); Reticulocytes Absolute 0.072 X10*6/uL (0.026-0.095); White Blood Count 4.0 X10*3/uL (4.8-10.8)
[2025-04-16 10:50] LABS: Alanine Aminotransferase 18 U/L (0-31); Albumin Level 4.3 g/dL (3.5-5.0); Alkaline Phosphatase 58 U/L (39-117); Anion Gap 11 (12-20); Aspartate Amino Transferase 23 U/L (5-31); Blood Urea Nitrogen 30 mg/dL (9-16); Calcium 10.2 mg/dL (8.4-10.2); Carbon Dioxide 23 mmol/L (22-29); Chloride 111 mmol/L (96-108); Estimated Glomerular Filt Rate 33; Iron 47 mcg/dL (30-160); Percent Iron Saturation 17 % (15-50); Potassium 4.3 mmol/L (3.3-5.1); Sodium 141 mmol/L (135-145); Total Iron Binding Capacity 283 mcg/dL (228-428); Total Protein 7.2 g/dL (6.5-8.0); Unsaturated Iron Binding 236 ug/dL
[2025-04-16 11:18] LABS: Ferritin 69 ng/mL (10-250)
== END 2025-04-16 07:51 | disposition home or self-care (01) ==
LOC: HO.HMGCLDS 07:50
PROVIDERS: PCP Nurse Practitioner Family; Visit Provider Nurse Practitioner Family
DX: D64.9 Anemia, unspecified (principal); E55.9 Vitamin D deficiency, unspecified
CPT/HCPCS: 36415; 80053; 82306; 82728; 83540; 85025; 85045

== ENCOUNTER 2025-04-18 07:23 | Outpatient (REF) | payer MEDICARE, SELFPAY ==
[2025-04-18 10:37] LABS: Alanine Aminotransferase 19 U/L (0-31); Albumin Level 4.3 g/dL (3.5-5.0); Alkaline Phosphatase 58 U/L (39-117); Anion Gap 15 (12-20); Aspartate Amino Transferase 26 U/L (5-31); Blood Urea Nitrogen 33 mg/dL (9-16); Calcium 10.2 mg/dL (8.4-10.2); Carbon Dioxide 22 mmol/L (22-29); Chloride 109 mmol/L (96-108); Estimated Glomerular Filt Rate 22; Potassium 4.1 mmol/L (3.3-5.1); Sodium 142 mmol/L (135-145); Total Protein 7.1 g/dL (6.5-8.0)
== END 2025-04-18 07:24 | disposition home or self-care (01) ==
LOC: HO.HMGCLDS 07:23
PROVIDERS: PCP Nurse Practitioner Family; Visit Provider Nurse Practitioner Family
DX: R79.89 Other specified abnormal findings of blood chemistry (principal)
CPT/HCPCS: 36415; 80053

== ENCOUNTER 2025-04-25 11:18 | Outpatient (AMB) | payer MEDICARE, SELFPAY ==
--- NOTE | 2025-04-25 11:29 | MHC.PC.OV ---
Vital Signs 04/25/25 11:34 04/25/25 11:57 Weight 160 lb BP 170/85 H 150/85 H Blood Pressure Location Lt brachial Position Sitting Respiration 16 Intake Visit Reasons: labs follow up Staff Nurse [facility] Resource Team Required: No Accompanied by: Self / Same As Patient Allergies No Known Allergies (No Known Allergies*) Allergy (Verified 04/25/25 11:53) Medication List - Last Reconciled 04/25/25 by MATT ReidP- amlodipine 10 mg PO DAILY cholecalciferol (vitamin D3) 50 mcg PO DAILY cholecalciferol (vitamin D3) 50 mcg PO DAILY 90 days ferrous sulfate 325 mg PO DAILY levothyroxine 88 mcg PO DAILY lisinopril-hydrochlorothiazide 20-12.5 mg 1 tab PO DAILY 90 days metoprolol tartrate 50 mg PO BID Tobacco use date assessed: 04/25/25 Fall risk assessment: No Falls in past year Last assessed Fall Risk: 04/25/25 Dental Screening Dental Screen Date: 04/25/25 Did you have a dental visit in the last 12 months?: No Did you have a dental problem in the last 6 months where you did not have access to dental care?: No Was dental information given to patient?: Patient declined [facility] Medical History Overactive bladder Arthritis Hypothyroid HTN (hypertension) Complex renal cyst Elevated liver enzymes Surgical History Hx of tonsillectomy BCC (basal cell carcinoma) History of right hip replacement History of left hip replacement Family History Father No problems noted. Mother HTN (hypertension) Diabetes mellitus Paternal Grandfather No problems noted. Maternal Grandfather No problems noted. Maternal Grandmother No problems noted. Paternal Grandmother No problems noted. Sister No problems noted. Son No problems noted. Daughter No problems noted. Social History Housing: House Are you a primary rn wound care to a significant other at home: No Do you presently have visiting nurse or other home services: No Alcohol intake: never Patient Tobacco Use Status: Former Tobacco user Tobacco use type: Cigarette Years Smoked: 15 e-Cigarette/Vaping Use: Never Used Second Hand Smoke Exposure: No service: No Current occupational status: retired Cognitive needs: No Hearing needs: No Vision needs: No Questionnaire Thrive Questionnaire Date Thrive assessed: 01/02/25 JOHN-7 AMB Questionnaire JOHN-7 Date JOHN - 7 assessed: 01/02/25 Source: Developed by Drs. Sylvain Rowe, Sonia Stroud, Luther Reyes and colleagues, with an educational crissy from [employer]. Physical exam (Primary Care) Vital Signs: Last Vital Signs Resp 16 04/25/25 11:34 BP 170/85 H 04/25/25 11:34 Tobacco/Smoking Status: Tobacco use Status Tobacco use date assessed 04/25/25 04/25/25 11:37 Patient Tobacco Use Status Former Tobacco user 04/25/25 11:37 Tobacco use type Cigarette 04/25/25 11:37 e-Cigarette/Vaping Use Never Used 04/25/25 11:37 Thrive Assessment: Date of Thrive Assessment Date Thrive assessed 01/02/25 04/25/25 11:37 Coding Level of Care Code Est Pt Level 3 (72832) Diagnoses HTN (hypertension) I10 CKD (chronic kidney disease) N18.9 Assessment & Plan Assessment & Plan (1) HTN (hypertension): Code(s): I10 - Essential (primary) hypertension Category: Medical (2) CKD (chronic kidney disease): Code(s): N18.9 - Chronic kidney disease, unspecified Category: Medical Plan .
[2025-04-25 11:34] VITALS: BP 170/85; RESP 16
[2025-04-25 11:57] VITALS: BP 150/85
== END 2025-04-25 11:48 | disposition home or self-care (01) ==
LOC: HO.HMCC 11:18
PROVIDERS: PCP Nurse Practitioner Family; Visit Provider Nurse Practitioner Family
DX: I12.9 Hypertensive chronic kidney disease with stage 1 through stage 4 chronic kidney disease, or unspecified chronic kidney disease (principal); N18.9 Chronic kidney disease, unspecified

== ENCOUNTER → 2025-04-25 11:18 | Outpatient (BNVA) | payer MEDICARE, SELFPAY | PROVIDERS: PCP Nurse Practitioner Family; Visit Provider Nurse Practitioner Family | DX: I12.9 Hypertensive chronic kidney disease with stage 1 through stage 4 chronic kidney disease, or unspecified chronic kidney disease (principal); N18.9 Chronic kidney disease, unspecified | CPT/HCPCS: 99212 ==